=== PATIENT | male | born 1980 | race Caucasian/White ===

== ENCOUNTER 2019-08-21 09:15 | Outpatient (REF) | payer OTHER, SELFPAY ==
[2019-08-21 21:23] LABS: Anion Gap 7.8 mmol/L (3-11); BUN 13 mg/dL (7-18); CO2 29.2 mmol/L (21.0-32.0); CREATININE 0.85 mg/dL (0.70-1.30); Calcium 9.1 mg/dL (8.5-10.1); Calculated LDL 144 mg/dL; Chloride 103 mmol/L (98-107); Cholesterol 231 mg/dL (50-200); Glucose 95 mg/dL (70-100); HDL Cholesterol 24 mg/dL (40-60); Potassium 4.8 mmol/L (3.5-5.1); Sodium 140 mmol/L (136-145); Triglyceride 316 mg/dL (30-150)
== END 2019-08-21 09:35 ==
LOC: NCHCN 09:15
PROVIDERS: PCP Family Medicine; Visit Provider Nurse Practitioner Family
DX: I10 Essential (primary) hypertension (principal); Z00.00 Encounter for general adult medical examination without abnormal findings
CPT/HCPCS: 80048; 80061